=== PATIENT | female | born 1960 | race Caucasian/White ===

== ENCOUNTER → 2023-01-18 11:09 | Outpatient (CLI) | payer BC, SELFPAY ==
--- NOTE | ~2023-01-18 | MR_ITS ---
EXAMINATION: MR lower leg RT wo con DATE: 01/18/2023 12:04 INDICATION: Right lower leg pain TECHNIQUE: Magnetic resonance imaging (MRI) of the right lower leg was performed without intravenous contrast. Sequences included axial, sagittal and coronal T1-weighted FSE fluid sensitive FSE STIR. Co ntralateral left lower leg is included on the coronal images. COMPARISON: None. FINDINGS: Assessment of the knee joints are significantly more limited on the larger field of view images than on a standard MRI of the knee. There are small bilateral knee joint effusions. Moderate-sized Valverde c yst at the right knee. Patellofemoral compartment predominant osteoarthritis at the right knee with p artial thickness cartilage loss and fissuring with small regions of subarticular edema-like signal ch anges at the medial and lateral patellar facets. Mild medial extrusion of the bilateral medial menisc al bodies. Likely complex tear at the posterior horn of the right medial meniscus. Likely longitudina l horizontal tear extending to the intra-articular surface at the body of the left medial meniscus. O steoarthritis with mild subarticular eburnation and minimal subarticular edema-like signal change at the medial compartment of the left knee. Small low signal intensity bone island at the posterior lateral femoral condyle of the right knee. Grady ne marrow signal is otherwise normal. No fracture, stress reaction or pathologic marrow replacing pro cess. There is relatively symmetric subtle increased fluid signal in the bilateral gastrocnemius musc les. Small region of focal fatty atrophy in the medial head of the left gastrocnemius muscle. IMPRESSION: 1. Relatively symmetric mild increased fluid signal at the bilateral gastrocnemius muscles. This nons pecific with a wide differential which includes low-grade muscle strains, delayed onset muscle sorene ss,, rhabdomyolysis infectious myositis or other inflammatory myositis which has an additional wide d ifferential. 2. Bilateral medial meniscal tears and osteoarthritis with bilateral small joint effusions and medial compartment predominance at the left knee and patellofemoral predominance at the right knee. Assessm ent of the knees is however significantly more limited than on a standard dedicated knee MRI with sma ller field of view. 3. Moderate-sized Valverde cyst at the right knee. Reviewed, dictated and finalized at location A. [employer] IMPRESSION: 1. Relatively symmetric mild increased fluid signal at the bilateral gastrocnem ius muscles. This nonspecific with a wide differential which includes low-grade muscle strains, delayed onset muscle soreness,, rhabdomyolysis infectious myos itis or other inflammatory myositis which has an additional wide differential. 2. Bilateral medial meniscal tears and osteoarthritis with bilateral small join t effusions and medial compartment predominance at the left knee and patellofem oral predominance at the right knee. Assessment of the knees is however signifi cantly more limited than on a standard dedicated knee MRI with smaller field of view. 3. Moderate-sized Valverde cyst at the right knee.
== END ==
PROVIDERS: PCP Nurse Practitioner Family; Visit Provider Orthopaedic Surgery
DX: M71.21 Synovial cyst of popliteal space [Baker], right knee (principal); M17.0 Bilateral primary osteoarthritis of knee; S83.242A Other tear of medial meniscus, current injury, left knee, initial encounter; S83.241A Other tear of medial meniscus, current injury, right knee, initial encounter; X58.XXXA Exposure to other specified factors, initial encounter
CPT/HCPCS: 73718

== ENCOUNTER → 2023-02-20 13:36 | Outpatient (CLI) | payer BC, SELFPAY ==
--- NOTE | ~2023-02-20 | MR_ITS ---
MRI of the right knee Clinical history: Pain Technique: Coronal proton density and proton density-weighted images, sagittal proton-density and T2 fat-sat images, and axial proton-density fat-saturated images were acquired. Findings: Anterior and posterior cruciate ligaments are intact. Medial collateral ligament and the la teral collateral ligament complex are intact. Popliteus tendon is intact. There is complex tearing of the posterior horn and body of the medial meniscus, with horizontal and v ertical tear components. No definite lateral meniscal tear seen. There is a high-grade chondromalacia towards the medial joint line. There is reactive subchondral mar row edema in the medial tibial plateau towards the joint line. Questionable very early/subtle subchon dral insufficiency fracture. There is moderate to high-grade chondral lesion at the patellar apex ext ending towards the medial patellar facet. There is mild chondromalacia the femoral trochlea. Extensor mechanism is intact. Small joint effusion present. There is fluid distention of semimembrano marixa bursa, compatible with bursitis. Impression: Complex tearing of the posterior horn and body of medial meniscus, as detailed above. Advanced degenerative change of the medial joint line region with questionable very early/subtle subc hondral sufficiency fracture at the medial tibial plateau. Additional mild to moderate degenerative changes, as noted above. Severe tendinosis bursitis and small joint effusion. Reviewed, dictated and finalized at location . Impression: Complex tearing of the posterior horn and body of medial meniscus, as detailed above. Advanced degenerative change of the medial joint line region with questionable very early/subtle subchondral sufficiency fracture at the medial tibial plateau . Additional mild to moderate degenerative changes, as noted above. Severe tendinosis bursitis and small joint effusion.
== END ==
PROVIDERS: PCP Nurse Practitioner Family; Visit Provider Family Medicine Sports Medicine
DX: S83.231A Complex tear of medial meniscus, current injury, right knee, initial encounter (principal); X58.XXXA Exposure to other specified factors, initial encounter; M17.11 Unilateral primary osteoarthritis, right knee; M25.461 Effusion, right knee; M70.51 Other bursitis of knee, right knee
CPT/HCPCS: 73721

== ENCOUNTER 2024-08-29 21:30 | Emergency (ER) | payer BC, SELFPAY ==
[2024-08-29 21:33] VITALS: BP 150/80; PULSE 68; RESP 15; TEMP 36.4; O2SAT 100
--- NOTE | 2024-08-30 00:17 | PC.NURSE ---
Patient walked up to triage desk and advised that she was leaving. Patient ambulated out of ED with a steady gait.
== END 2024-08-30 01:52 | disposition left against medical advice (07) ==
PROVIDERS: PCP Nurse Practitioner Family
DX: H43.399 Other vitreous opacities, unspecified eye (principal)
CPT/HCPCS: 99199

== ENCOUNTER 2024-10-26 10:00 | Outpatient (CLI) | payer BC, SELFPAY ==
--- NOTE | ~2024-10-26 | MM_ITS ---
EXAMINATION: MM screening jermain BI w shanon HISTORY: Screening TECHNIQUE: Craniocaudal and mediolateral oblique 3-D tomosynthesis images were obtained and synthetic 2-D images were generated. CAD analysis was submitted and interpreted. COMPARISON: No prior mammogram is available for comparison at this institution. BREAST PARENCHYMAL COMPOSITION: Not dense: There are scattered areas of fibroglandular density. FINDINGS: There is no evidence of suspicious mass, calcification, or architectural distortion to sugg est malignancy in either breast. There has been no suspicious interval change. IMPRESSION: 1. No mammographic evidence of malignancy. 2. Recommend routine screening mammography in one year. BI-RADS Category 1: Negative Reviewed, dictated and finalized at location B. [employer]
== END 2024-10-26 10:01 | disposition home or self-care (01) ==
LOC: ANHIMG 10:05
PROVIDERS: Visit Provider Nurse Practitioner Family
DX: Z12.31 Encounter for screening mammogram for malignant neoplasm of breast (principal)
CPT/HCPCS: 77063; 77067